=== PATIENT | male | born 2000 | race Caucasian/White ===

== ENCOUNTER 2025-10-12 20:30 | Emergency (ER) | payer OTHER, SELFPAY ==
[2025-10-12 20:40] VITALS: BP 127/73
[2025-10-12 20:59] VITALS: BMI 21.7
--- NOTE | 2025-10-12 22:04 | ED.GENMED ---
History of Present Illness
General
Chief Complaint: Back Pain
Time Seen by Provider: 10/12/25 21:43
History of Present Illness
History of Present Illness:
25-year-old otherwise healthy male presents to the emergency department for evaluation of lower back pain bilaterally radiating to the abdomen bilaterally for the past 3 days. No obvious provoking or palliating factors. No fever, chills, sweats,
nausea, vomiting, or diarrhea. He does report minor intermittent dysuria as well, denies hematuria or penile discharge. Reports pain does radiate toward the testes as well. Denies any history of abdominal surgeries
Review of Systems
Review of Systems
Allergies reviewed?: Yes
All Other Systems: ROS reviewed and negative except as documented in HPI and ROS
Phy Exam
Physical Exam
Physical Exam:
GEN: Well appearing, NAD, WDWN
HEENT: Oral mucosa moist, no scleral icterus
Cardiac: Regular rate and rhythm, no murmur
Lung: No respiratory distress, no tachypnea, lungs clear to auscultation bilaterally
Abdomen: Soft, mild right lower quadrant tenderness, no suprapubic tenderness, no rigidity, no CVA tenderness bilaterally
MSK: No gross deformity or injuries, no reproducible midline lumbar spinal tenderness or paraspinous muscular tenderness
Skin: Good color, no pallor or jaundice, no rashes
Neuro: AO x3, moves all extremities freely
Psych: Calm, cooperative
Course
Orders/Labs/Results
Orders:
Orders
10/12/25 22:39
Urinalysis Reflex To Culture Urgent
Date Specimen was Collected: 10/12/25
Time Specimen was Collected: 22:37
Urine Microscopic Reflex Cult Urgent
10/12/25 23:19
CT Abd/pel Without Iv Or Oral Urgent
Comment:
Reason For Exam: low back/pubic pain
10/13/25 00:12
Cephalexin Monohydrate [Keflex] 500 mg PO NOW STA
Abnormal Lab Results
10/12/25
22:39
Urine RBC 3-6 A /HPF
(0-2)
Urine Bacteria (Reflex) Few A
(Negative)
Urine Albumin (Reflex) 1+ A
(Neg - Trace)
Vital Signs
Initial and Last Documented VS:
Initial Vital Signs
Temp Pulse Resp BP Pulse Ox
98.3 F 72 18 127/73 100
10/12/25 20:40 10/12/25 20:40 10/12/25 20:40 10/12/25 20:40 10/12/25 20:40
Last Documented Vital Signs
Temp Pulse Resp BP Pulse Ox
98.3 F 72 18 127/73 100
10/12/25 20:40 10/12/25 20:40 10/12/25 20:40 10/12/25 20:40 10/12/25 22:05
MDM/Problems Addressed
MDM/Problems Addressed:
Patient's symptoms are suspicious for UTI although urinalysis is not overly convincing. CT was obtained to evaluate for ureteral stone or appendicitis and this did reveal bladder wall thickening suspicious for acute cystitis. Given lack of other
findings we will treat empirically for UTI
*Pulse Oximetry
SaO2: 100
Oxygen Mode of Delivery: Room air
Patient hypoxic: no
*Critical Care Note
Total Time (30-74mins, 75-104mins- exclusive of procedures): Not Applicable
ED Attending Note
-
Portions of this chart may have been created with voice recognition software.� Occasional wrong word or��sound alike� substitutions may have occurred due to the inherent limitations of voice recognition software.
Discharge Plan
Departure
Patient Disposition: Home (Routine Discharge)
Date of Disposition: 10/13/25
Time of Disposition: 00:12
Patient with high blood pressure during this ER visit?: No
Discharge Problem:
Acute cystitis
Instructions: Urinary tract infection in adults - ED (DC)
Prescriptions:
New
cephalexin 500 mg capsule
500 mg PO BID 7 Days Qty: 14 0RF
Referrals:
Yusef Paris CRNP [Family Provider]
Activity Restrictions/Additional Instructions:
Your CT scan showed no evidence for kidney stone or for appendicitis. Although the urinalysis was not strongly indicative of a UTI, your symptoms and CAT scan findings are highly suspicious for a bladder infection and we will treat you with
antibiotics accordingly. Do not hesitate to return to the emergency department or follow-up with her primary care physician if your symptoms do not improve
Interventions
Interventions:
*Risk Screen - Suicide Last Done: 10/12/25 20:42
*General Assessment Last Done: 10/12/25 20:42
*Neglect/Abuse Screening Last Done: 10/12/25 20:42
*ED- Fall Risk Assessment Last Done: 10/12/25 21:00
*ED COVID-19 Vaccine History Last Done: 10/12/25 20:42
*ED Influenza Vaccine History Last Done: 10/12/25 20:42
ED-Musculoskeletal Assessment Last Done: 10/12/25 20:57
Discharge Date and Time
Print Language: LITHUANIAN
[2025-10-12 22:54] LABS: Urine Character Clear (Clear)
[2025-10-12 23:00] LABS: Urine Squamous Cell 0-2 /LPF (Few)
[2025-10-12 23:04] LABS: Urine White Cell 0-2 /HPF (0-5)
[2025-10-13] MEDS: KEFLEX 500 MG PO (00:45)
[2025-10-13 00:49] VITALS: BP 113/75
== END 2025-10-13 00:49 | disposition home or self-care (01) ==
LOC: EMR 20:30
PROVIDERS: Physician Assistant; EMERGENCY PHYSICIAN Emergency Medicine
DX: N30.00 Acute cystitis without hematuria (principal)
CPT/HCPCS: 99284; 74176; 81003; 81015